=== PATIENT | female | born 1950 | race Caucasian/White ===

== ENCOUNTER → 2018-11-10 | Outpatient (REF) | payer MEDICARE, BC | LOC: M LAB LCGH 20:28 | PROVIDERS: ATTEND Orthopaedic Surgery | DX: Z00.00 Encounter for general adult medical examination without abnormal findings (principal) ==

== ENCOUNTER → 2018-12-11 | Outpatient (REF) | payer BC | LOC: M SFHCPLAZ 10:15 | PROVIDERS: ATTEND Internal Medicine Rheumatology | DX: M06.9 Rheumatoid arthritis, unspecified (principal); Z53.9 Procedure and treatment not carried out, unspecified reason ==

== ENCOUNTER → 2021-03-12 | Outpatient (REF) | payer MEDICARE, BC | LOC: M SFHCRHEU 15:14 | PROVIDERS: ATTEND Internal Medicine Rheumatology | DX: Z79.899 Other long term (current) drug therapy (principal) ==

== ENCOUNTER → 2021-03-17 | Outpatient (CLI) | payer MEDICARE, BC ==
[~2021-03-17] MED LIST: AMLO1TAB24 PO; ECOT81TA5 PO; ETAN50SY SC; LEFL1TAB4 PO; LEVOTAB10 PO; OMEP-218 PO; OYST1TAB PO; PLAQ200T4 PO; POTA10808 PO; PRAV40TA2 PO; SING10TA32 PO; SPIR1CAP INH; TRIA37.5 PO
--- NOTE | 2021-03-17 14:58 | RADONC.CN ---
Radiation Oncology Hx/Consult Radiation Oncology Consult Date of Service: Mar 17, 2021 Pt Identifier Rosy Dasilva is a 71 year old female former smoker with a history of RA on enbrel as well as O2 dependence who presented with rectal bleeding in November 2020 and was found to have a 15 cm rectal polyp starting at the anus and occupying 50% of the entire rectal lumen, which on biopsy was found to contain high grade dysplasia. She underwent transanal excision of the lesion with Dr. Coffey on 02/19/21 and was found to harbor at least [id number] rectal adenocarcinoma with in determinate margin and indeterminate T stage. She has been deemed unfit for transabdominal resection due to her comorbidities and is referred for consideration of adjuvant therapy. Diagnosis/Treatment History Oncologic History 2020 was scheduled to have screening colonoscopy which was delayed by hospitalization for reaction to her COVID vaccine In november 2020 she developed copious painless BRBPR and underwent emergent colonoscopy which revealed a large distal colon polyp which was biopsied on 12/01/20 and found to contain high grade dysplasia 11/30/20 CT abdomen pelvis with rectal wall thickening no evidence of adenopathy or metastasis She met with Dr. Coffey who on 01/14/21 repeated proctoscopy and biopsy this time showing only TVA She underwent transanal excision with Dr. Coffey on 02/19/21 with pathology showing adenocarcinoma low grade, margin status indeterminate, cannot exclude invasion beyond muscularis propria, at least [id number] Interval History Rosy reports she continues on Enbrel for her RA. Since her hospitalization earlier this year she has remained on O2. She has no significant symptoms s/p transanal resection of her polyp. No further bleeding, no change in bowel frequency or stool gauge. She does not increased hemorrhoids. No nausea or vomiting. No abdominal pain. No urinary symptoms at baseline. Appetite and energy levels stable. Past Medical History: GERD HPL HTN RA COPD Past Surgical History: MADIHA d/t ovarian cyst Family History: Brother leukemia Sister ovarian cancer Sister breast cancer (pt's twin) Social History: 40 pack year former smoker Drinks 1-2 drinks 2 days per week Review of Systems Constitutional: Reports: Fatigue; Denies: Chills, Fever, Weight Loss Eyes: Denies: Pain HEENT: Denies: Head Aches Skin: Denies: Rash Pulmonary: Reports: Dyspnea, Cough Cardiovascular: Denies: Chest Pain, Palpitations Gastrointestinal: Denies: Nausea, Vomiting, Abdominal Pain, Hematochezia Genitourinary: Denies: Dysuria, Frequency Hematologic: Denies: Bruising, Bleeding Excessively Musculoskeletal: Denies: Neck pain, Back pain Neurological: Denies: Weakness Psych: Reports: Mood Normal Vital Signs Wt 138 lbs T 97.9 P 96 RR 22 BP 155/82 O2 93% on 2L NC Pain 0 Fatigue 0 General Exam: Alert, Cooperative, No Acute Distress Eye Exam: PERRLA, EOMI ENT EXAM: Atraumatic Neck Exam: Supple Chest Exam: Clear to auscultation, Normal air movement Heart Exam: Rate Normal, Regular Rhythm Abdomen Exam: Soft; Negative: Tenderness Extremity Exam: Negative: Edema Skin Exam: Nl turgor and temperature Neuro Exam: Normal Gait, Normal Speech, Cranial Nerves 3-12 NL Psych Exam: Mental status NL Diagnostic and Laboratory Diagnostic Review Radiologic images, relevant labs and pathology reports were personally reviewed and discussed with Ms. Dasilva. Assessment and Plan Impression Ms. Dasilva is a 71 year old female former smoker with a history of RA on enbrel as well as O2 dependence who presented with rectal bleeding in November 2020 and was found to have a 15 cm rectal polyp starting at the anus and occupying 50% of the entire rectal lumen, which on biopsy was found to contain high grade dysplasia. She underwent transanal excision of the lesion with Dr. Coffey on 02/19/21 and was found to harbor at least [id number] rectal adenocarcinoma with indeterminate margin and indeterminate T stage. She has been deemed unfit for transabdominal resection due to her comorbidities and is referred for consideration of adjuvant therapy. Stage Rectal adenocarcinoma [id number] stage X Performance Status ECOG 1 Plan We had an extensive discussion with Ms. Dasilva regarding the diagnosis at hand and available therapeutic options. She does not believe she would be able to tolerate MRI of the pelvis. In addition, this is likely to be compromised by the recent surgery which would likely not resolve the question of T stage, though any suspicious LN may be visible. She has been deemed unfit for an open resection of the rectum. Moreover, given the extent of the lesion to the anal verge she may require APR for adequate margins. This would be an undesirable outcome. She also has a history of prior pelvic surgery, comorbid RA on biologic therapy as well as O2 dependent COPD. which may lead to additional complication risk. Also if her tumor was proven pT3 or N+ on final pathology we would have to consider adjuvant chemoradiation and/or chemotherapy, both of which are noted to be more toxic in the adjuvant, than neoadjuvant setting. I think based on her indeterminate T and N stage as well as her indeterminate margin status that she would benefit from RT to augment the probability of local control. Given her comorbidities, I think a rational approach to her care would be to establish whether or not she is a candidate for systemic therapy, and review her case at our tumor board for consensus. With respect to RT I favor short-course in her case, as the LC benefit of short- course versus long course RT is equivalent per [place] I and [place] III, and the short course regimen is less toxic and time consuming. Also, if she is deemed fit enough, systemic therapy after RT may be recommended given the indeterminate T and N stage. Alternatively, she could forego systemic therapy and be observed after RT. These approaches are all within the auspices of NCCN guidelines. We discussed the logistics of receiving radiation therapy in detail including the need for a 1-time planning session this can occur in approximately 2 weeks. We reviewed the side effects of RT including change in bowel frequency and quality as well as fatigue, and urinary symptoms. After discussing the risks, benefits and alternatives to radiation therapy, Ms. Dasilva was amenable to pursuing radiotherapy. All questions were answered to the patient's satisfaction. We instructed the patient that if there were any questions,concerns or changes in clinical status in the interim to contact us. Recommendations Short course RT 25 Gy in 5 fractions prone with 3D planning and IGRT Referral to medical oncology for consideration of adjuvant chemotherapy given incomplete surgical staging Tumor board discussion Simulation in 2 weeks Billing Statement Total time of [51] minutes was spent preparing for the visit [3], obtaining HPI [9], examining the patient [2], reviewing diagnostic tests [8], discussing management options [18], coordinating care [4], and writing this note [7]. MICHAEL MAHER MD Mar 17, 2021 14:54
== END ==
LOC: M ONCR 10:50
PROVIDERS: ATTEND General Practice
DX: C20 Malignant neoplasm of rectum (principal); E78.5 Hyperlipidemia, unspecified; I10 Essential (primary) hypertension; J44.9 Chronic obstructive pulmonary disease, unspecified; K21.9 Gastro-esophageal reflux disease without esophagitis; M06.9 Rheumatoid arthritis, unspecified; Z80.3 Family history of malignant neoplasm of breast; Z87.891 Personal history of nicotine dependence; Z99.81 Dependence on supplemental oxygen

== ENCOUNTER → 2021-04-06 | Outpatient (CLI) | payer MEDICARE, BC ==
[~2021-04-06] MED LIST changes: +BUDE8.43 NS; +CAPE1TAB2 PO; +IRON27TA2 PO; +LIDOCAINE 1% MDV 20ML VIAL As Ordered ONE; +MIDAZOLAM INJ 2MG/2ML VIAL (J2250 PER 1MG) As Ordered ONE; +NOXI1TAB PO; +NS 1,000 ML IV SCH; +ONDA8TAB10 PO; +PRED10TA2 PO; +PROC10TA4 PO; +SYMB16INH INH; +TRAV04OPD OP; +VENTAER INH; +ceFAZolin 1GM VIAL (J0690 PER 500MG) As Ordered ONE; +ceFAZolin SOD 1 GM in D5W MINI-BAG PLUS 50 ML IV SCH; +ceFAZolin SOD 2 GM in IV 1 EA IV ONE; +diphenhydrAMINE 50MG/ML VIAL (J1200) As Ordered ONE; +fentaNYL 100 MCG/2 ML INJECTION (J3010) As Ordered ONE
--- NOTE | 2021-04-06 15:08 | IRPON ---
IR Postoperative Note Date Of Procedure: Apr 06, 2021 Time Of Procedure: 15:08 IR Postoperative Note IR Ultrasound and fluoroscopy guided port placement IR Ultrasound of the neck. IR Moderate sedation. Clinical indication: Rectal cancer. Physician: Dr. Obrien. Procedure: The patient was advised of the benefits, risks, and alternatives of the procedure and informed consent was obtained. A time-out was performed with verification of the patient's name, MRN, site of procedure and type of procedure to be performed. The patient was positioned in the supine position on the angiographic table. The site was prepped and draped in the usual sterile fashion. Moderate sedation was performed by the physician including the presence of an independent trained RN who assisted and monitored the patient's level of consciousness and physiologic status. Following the administration of fentanyl and Versed , the physician spent 45 minutes of continuous face to face time with the patient. Ultrasound of the neck reveals a patent and compressible right internal jugular vein. A car ferry master radiograph reveals no gross abnormality. The neck and anterior chest wall were anesthetized with lidocaine. The right internal jugular vein was accessed using a microintroducer needle under ultrasound guidance, via a lateral approach. An 018 wire was advanced into the superior vena cava, the needle was removed and a microsheath was placed. An Amplatz wire was then passed into the inferior vena cava. An incision at the internal jugular vein access site and anterior chest wall were made using a scalpel. An incision was made at the anterior chest wall. A small pocket was created using a combination of blunt and sharp dissection. A tunneling device was then used to pass the catheter from the pocket to the neck puncture site. An 8- Pashto Angio Medisse Smart power port was then positioned in the pocket. The catheter was then measured and cut. The introducer sheath was exchanged for a peel-away sheath. The catheter was passed through the peel-away sheath into the internal jugular vein and the peel-away sheath was removed. The port tip was positioned at the cavoatrial junction. The port was then accessed with a Quintanilla needle. The port flushes and aspirates well. The puncture site in the neck was closed. The chest wall incision was then closed with 2-0 Vicryl and 4-0 Monocryl. Glue and Steri- Strips were applied. A sterile dressing was then applied. The patient tolerated the procedure well and was returned to the PRU in stable condition. Estimated blood loss: <5 ml. Complications: None. Conclusion: 1. Successful placement of an 8-Pashto Angio dynamics Smart power port via the right internal jugular vein. The port is ready for immediate use. 2. Patient to follow up in IR clinic in 2 weeks. Thank you for this referral. JOSHUA OBRIEN MD Apr 06, 2021 15:08
[2021-04-06 16:30] VITALS: BP 138/76
== END ==
LOC: M IRPRO 12:50
PROVIDERS: ATTEND Specialist
DX: C19 Malignant neoplasm of rectosigmoid junction (principal)
CPT/HCPCS: 36561; 99152; 99153; C1769; C1788; C1894; J0690; J1200; J1642; J1644; J2250; J3010

== ENCOUNTER → 2021-04-13 | Outpatient (CLI) | payer MEDICARE, BC ==
[~2021-04-13] MED LIST changes: -LIDOCAINE 1% MDV 20ML VIAL As Ordered ONE; -MIDAZOLAM INJ 2MG/2ML VIAL (J2250 PER 1MG) As Ordered ONE; -NS 1,000 ML IV SCH; -ceFAZolin 1GM VIAL (J0690 PER 500MG) As Ordered ONE; -ceFAZolin SOD 1 GM in D5W MINI-BAG PLUS 50 ML IV SCH; -ceFAZolin SOD 2 GM in IV 1 EA IV ONE; -diphenhydrAMINE 50MG/ML VIAL (J1200) As Ordered ONE; -fentaNYL 100 MCG/2 ML INJECTION (J3010) As Ordered ONE
--- NOTE | 2021-04-13 14:48 | REP ---
INDICATION: STAGING COLON CANCER C18.8. COMPARISON: Comparison CT study abdomen pelvis November 30, 2020 from [facility]. There is also a comparison chest CT study from October 11, 2020. TECHNIQUE: Forty-six minutes following the intravenous injection of a 9.20 mCi dose of F-18 FDG, three-dimensional PET scintigraphy is acquired from the skull base to the proximal thighs. Triplanar noncontrast CT scanning is acquired through the same anatomic range for attenuation correction, and image registration with scan parameters optimized to minimize radiation exposure to the patient. PET scintigraphy and CT datasets were fused and displayed on a workstation with multiplanar and projection display capability. FINDINGS: Hypermetabolic uptake is seen in the rectum corresponding with the known rectal malignancy. Maximum standard uptake value here is 14.01. No perirectal or pelvic monae hypermetabolic uptake is seen. There is visible uptake in a normal-sized left external iliac lymph node. Maximum standard uptake value is 1.64. This is not felt to be hypermetabolic. No other monae uptake is appreciated. No abnormal hypermetabolic uptake is seen within the liver. No upper abdominal monae uptake is seen. There is a hiatal hernia. Head and neck soft tissues are unremarkable. There is normal variant skeletal muscle uptake in the periarticular soft tissues of the shoulders, right more so than left and in the paraspinal soft tissues. No abnormal hilar or mediastinal monae uptake is seen within the chest. There is however a hypermetabolic left upper lobe pulmonary nodule demonstrating maximum standard uptake value of 3.08. This corresponds to the irregular nodule seen on CT study from September of 2020. No other abnormal pulmonary parenchymal hypermetabolic uptake is seen. No abnormal skeletal uptake is observed. IMPRESSION: 1. Hypermetabolic uptake is seen within the lower rectum. There is 1 normal-sized left external iliac lymph node however this is not hypermetabolic. 2. There is a hypermetabolic 1.4 cm left upper lobe pulmonary nodule similar in size to the October 11, [address] study. Primary versus secondary malignancy cannot be excluded. 3. No other abnormal hypermetabolic uptake seen. <Electronically signed by Maykel Rodriguez > 04/13/21 [id number]
== END ==
LOC: M PLARAD 10:28
PROVIDERS: ATTEND Specialist
DX: C18.8 Malignant neoplasm of overlapping sites of colon (principal)
CPT/HCPCS: 78815; A9552

== ENCOUNTER → 2021-04-21 | Outpatient (POV) | payer MEDICARE, BC ==
[~2021-04-21] VITALS: Ht 160 cm; Wt 65.4 kg
[2021-04-21 14:15] VITALS: BP 114/73
--- NOTE | 2021-04-23 11:44 | IRPN ---
[facility] IR Progress Note IR Progress Note DATE: Apr 21, 2021 FOLLOW-UP: Status post port placement. Patient reports doing well. No fevers, chills or pain at site. ON EXAMINATION: Port site appears to be healing well. No redness, fluctuance or discharge. IMPRESSION: Doing well status post port placement. No further follow-up scheduled unless initiated by patient and/or referring provider. Thank you for this referral Allergies Coded Allergies: clams (Verified Allergy, Severe, mouth swells up , 03/26/21) bacitracin (Verified Allergy, Mild, running rash, 03/26/21) neomycin (Verified Allergy, Mild, running rash, 03/26/21) polymyxin B (Verified Allergy, Mild, running rash, 03/26/21) VS,Fishbone, I+O VS, Fishbone, I+O Vital Signs Date Time Temp Pulse Resp B/P (MAP) Pulse Ox O2 Delivery O2 Flow Rate FiO2 04/21/21 14:15 97.4 130 24 114/73 (87) 97 Room Air JOSHUA DOMINGUEZ MD Apr 23, 2021 11:44
== END ==
LOC: M IRPOV 14:10
PROVIDERS: ATTEND Radiology Diagnostic Radiology
DX: Z45.2 Encounter for adjustment and management of vascular access device (principal); Z88.1 Allergy status to other antibiotic agents; Z91.013 Allergy to seafood

== ENCOUNTER → 2021-04-23 | Outpatient (RCR) | payer MEDICARE, BC | LOC: M ONCR 04-02 09:47 | PROVIDERS: ATTEND General Practice | DX: C20 Malignant neoplasm of rectum (principal) ==

== ENCOUNTER 2021-04-24 11:00 | Outpatient (RCR) | payer MEDICARE, BC ==
[2021-05-11] MEDS ORDERED: PROC10TA4 PO (11:53)
[2021-05-11] MEDS ORDERED: ONDA8TAB10 PO (11:53)
== END 2021-05-24 ==
LOC: M ONCR 11:00
PROVIDERS: ATTEND General Practice
DX: C20 Malignant neoplasm of rectum (principal)